=== PATIENT | male | born 1995 | race Asian ===

== ENCOUNTER 2017-02-14 20:30 | Emergency (ER) | payer OTHER ==
[2017-02-14 20:40] VITALS: BP 116/60; PULSE 96; TEMP 98.3; BMI 26.6
[2017-02-14] MEDS ORDERED: NAPROXEN 500 MG TABLET (FP) PO ONE (22:20)
[2017-02-14] MEDS ORDERED: NAPROXEN 500 MG TABLET (FP) ONE (22:24)
[2017-02-14] MEDS ORDERED: CYCLOBENZAPRINE HCL 10 MG TABLET (FP) PO ONE (22:25)
--- NOTE | 2017-02-14 22:25 | PDOC ---
History of Present Illness - General Chief Complaint: Pain Stated Complaint: NECK PAIN Time Seen by Provider: 02/14/17 22:15 History Source: Patient Exam Limitations: No Limitations - History of Present Illness Initial Comments: 02/14/17 22:29 My Chief complaint:: Left lateral neck discomfort History of present illness: He is a 21-year-old male with no significant medical history here today with intermittent left lateral neck pain 5 days agoes one week and today bilateral upper back muscular pain. Patient reports that he woke up with left lateral neck pain. She denies any radiation of pain down arms or legs or any saddle anesthesia or any incontinency. Patient reports she took Advil yesterday. Patient reports the pain is keeping him up at night. 02/14/17 22:31 Timing/Duration: intermittent (getting worse today ) Severity: moderate Modifying Factors: improves with: immobilization Associated Symptoms: reports: denies symptoms Past History - Past Medical History Allergies/Adverse Reactions: Allergies Allergy/AdvReac Type Severity Reaction Status Date / Time No Known Allergies Allergy Verified 02/14/17 20:37 Home Medications: Ambulatory Orders Cyclobenzaprine HCl [Flexeril 10 mg] 10 mg PO BID PRN #14 tablet 02/14/17 Naproxen [Naprosyn -] 500 mg PO BID PRN #14 tablet 02/14/17 Other medical history: Pt denies - Psycho/Social/Smoking Cessation Hx Anxiety: No Suicidal Ideation: No Smoking History: Former smoker Have you smoked in the past 12 months: Yes Number of Cigarettes Smoked Daily: 0 If you are a former smoker, when did you quit?: 1 month ago Information on smoking cessation initiated: No Hx Alcohol Use: No Drug/Substance Use Hx: No Substance Use Type: None Review of Systems - Review of Systems Able to Perform ROS?: Yes Constitutional: No: Symptoms Reported HEENTM: No: Symptoms Reported Respiratory: No: Symptoms reported Cardiac (ROS): No: Symptoms Reported ABD/GI: No: Symptoms Reported : No: Symptoms Reported Musculoskeletal: Yes: Muscle Pain (upper back b/l ), Neck Pain (left lateral neck, upper back ) Integumentary: No: Symptoms Reported Neurological: No: Symptoms reported *Physical Exam - Vital Signs Last Vital Signs Temp Pulse Resp BP Pulse Ox 98.3 F 96 H 20 116/60 100 02/14/17 20:38 02/14/17 20:38 02/14/17 20:38 02/14/17 20:38 02/14/17 20:38 - Physical Exam General Appearance: Yes: Appropriately Dressed Neck: positive: Tender lateral (left lateral ). negative: Decreased range of motion, Lymphadenopathy (R), Lymphadenopathy (L), Tender midline Respiratory/Chest: positive: Lungs Clear, Normal Breath Sounds. negative: Chest Tender, Respiratory Distress Cardiovascular: positive: Regular Rhythm, Regular Rate, S1, S2 Musculoskeletal: positive: Normal Inspection, Muscle Spasm (left lateral neck ) , Other (muscular pain b/l upper back, left lateral neck ). negative: CVA Tenderness, CVA Tenderness (R), CVA Tenderness (L), Vertebral Tenderness Integumentary: positive: Normal Color Neurologic: positive: Alert, Normal Response, Motor Strength 5/5, Responsive. negative: Respond to painful stimul, Numbness, Sensory Deficit Deep Tendon Reflexes: Knee (L): 4+, Knee (R): 4+ Medical Decision Making - Medical Decision Making 02/14/17 22:28 02/14/17 22:31 He is a 21-year-old male with no significant medical history here today with intermittent left lateral neck pain 5 days agoes one week and today bilateral upper back muscular pain. Patient reports that he woke up with left lateral neck pain. She denies any radiation of pain down arms or legs or any saddle anesthesia or any incontinency. Patient reports she took Advil yesterday. Patient reports the pain is keeping him up at night. left lateral neck pain b/l upper back muscular pain PLAN: naprosyn 500 mg po now than bid prn maryellen n# 14 tabs flexeril 10 mg po now than bid prn muscle spasm # 14 tabs follow up with orthopedist *DC/Admit/Observation/Transfer Diagnosis at time of Disposition: Neck pain on left side, Acute upper back pain - Discharge Dispostion Disposition: HOME Condition at time of disposition: Stable - Referrals Referrals: Haleigh Lora MD [Primary Care Provider] - Sotero Hoff MD [Staff Physician] - - Patient Instructions Additional Instructions: Avoid any strenuous activities or exercise Follow-up with orthopedist within the next few days For further evaluation return to emergency room if symptoms worsen or new symptoms develop Patient voiced understanding of discharge instructions and all questions were answered - Post Discharge Activity
[2017-02-14] MEDS ORDERED: CYCLOBENZAPRINE HCL 10 MG TABLET (FP) ONE (22:32)
== END 2017-02-14 22:40 | disposition home or self-care (01) ==
LOC: JERFT 20:30
DX: M54.2 Cervicalgia (principal); M54.89 Other dorsalgia; M62.830 Muscle spasm of back
CPT/HCPCS: 99281-25

== ENCOUNTER 2017-02-16 21:41 | Emergency (ER) | payer OTHER ==
[2017-02-16 22:01] VITALS: BP 114/64; PULSE 98; TEMP 98.4; BMI 26.6
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
[2017-02-16] MEDS ORDERED: DIPHTH,PERTUSS(ACELL),TET 0.5 ML DISP.SYRIN IM ONE (22:18)
== END 2017-02-16 22:30 | disposition home or self-care (01) ==
LOC: JERFT 21:41
PROC: 3E0234Z Introduction of Serum, Toxoid and Vaccine into Muscle, Percutaneous Approach (ICD-10-PCS; principal; 2017-02-16)
DX: S30.1XXA Contusion of abdominal wall, initial encounter (principal); W22.8XXA Striking against or struck by other objects, initial encounter; Y93.89 Activity, other specified; Y92.9 Unspecified place or not applicable
CPT/HCPCS: 90715; 99281-25

== ENCOUNTER 2017-08-15 20:54 | Emergency (ER) | payer OTHER ==
--- NOTE | 2017-08-15 21:26 | PDOC ---
Rapid Medical Evaluation Time Seen by Provider: 08/15/17 21:20 Medical Evaluation: Allergies Allergy/AdvReac Type Severity Reaction Status Date / Time No Known Allergies Allergy Verified 02/14/17 20:37 08/15/17 21:20 I have performed a brief in-person person evaluation of the patient. The patient presents with a chief complaint of pain to right side that radiates around to right flank area intermittently x months now pain constant x 4 days. States pain intermittently on left side also. States pain preventing him form sleeping for past 4 days. Pertinent physical exam findings: NAD unlabored breathing heart s1s2 abdomen with tenderness to right side next to healed scar, non tender in 4 quadrants no cva tenderness I have ordered the following: urinalysis ordered The patient will proceed to the ED for further evaluation.
[2017-08-15 21:35] VITALS: BP 131/76; PULSE 106; TEMP 98.8; BMI 25.0
[2017-08-15 23:22] LABS: URINE APPEARANCE CLEAR; URINE BILIRUBIN NEGATIVE (NEGATIVE); URINE BLOOD NEGATIVE (NEGATIVE); URINE COLOR YELLOW; URINE GLUCOSE (UA) NEGATIVE (NEGATIVE); URINE KETONE NEGATIVE (NEGATIVE); URINE LEUK ESTERASE NEGATIVE (NEGATIVE); URINE NITRITE NEGATIVE (NEGATIVE); URINE PROTEIN NEGATIVE (NEGATIVE)
[2017-08-15] MEDS ORDERED: IBUPROFEN 600 MG TABLET (FP) PO ONE ×2 (23:44→23:53)
--- NOTE | 2017-08-16 00:16 | PDOC ---
History of Present Illness - General History Source: Patient Exam Limitations: No Limitations - History of Present Illness Initial Comments: 08/16/17 00:16 The patient is a 21 year old male, with no significant past medical history, who presents to the emergency department with worsening right sided abdominal pain for the past 4 days but notes that he has been having discomfort for over a month. He describes his abdominal pain as ranging from mild to moderate, with radiation to his right flank intermittently. He notes that he has been feeling weird when urinating lately. He denies taking any medication for pain. The patient denies chest pain, shortness of breath, headache and dizziness. Denies fever, chills, nausea, vomit, diarrhea and constipation. Denies dysuria, frequency, urgency and hematuria. Allergies: None Past surgical history: None reported Social history: Cigarette use. No alcohol or drug use reported <Mikey Reese - Last Filed: 08/16/17 00:16> <Leigha Hutton - Last Filed: 08/16/17 00:30> - General Chief Complaint: Pain Stated Complaint: PAIN Time Seen by Provider: 08/15/17 21:20 Past History <Mikey Reese - Last Filed: 08/16/17 00:16> - Past Medical History COPD: No Other medical history: Pt denies - Suicide/Smoking/Psychosocial Hx Smoking History: Current every day smoker Have you smoked in the past 12 months: Yes Number of Cigarettes Smoked Daily: 4 If you are a former smoker, when did you quit?: 4 Information on smoking cessation initiated: No Hx Alcohol Use: No Drug/Substance Use Hx: No Substance Use Type: None <Leigha Hutton - Last Filed: 08/16/17 00:30> - Past Medical History Allergies/Adverse Reactions: Allergies Allergy/AdvReac Type Severity Reaction Status Date / Time No Known Allergies Allergy Verified 08/15/17 21:23 Home Medications: Ambulatory Orders Cyclobenzaprine HCl [Flexeril 10 mg] 10 mg PO BID PRN #14 tablet 02/14/17 Naproxen [Naprosyn -] 500 mg PO BID PRN #14 tablet 02/14/17 Review of Systems - Review of Systems Able to Perform ROS?: Yes Comments:: 08/16/17 00:16 GENERAL/CONSTITUTIONAL: No fever or chills. No weakness. HEAD, EYES, EARS, NOSE AND THROAT: No change in vision. No ear pain or discharge. No sore throat. CARDIOVASCULAR: No chest pain or shortness of breath RESPIRATORY: No cough, wheezing, or hemoptysis. GASTROINTESTINAL: (+) Right sided abdominal pain. No nausea, vomiting, diarrhea or constipation. GENITOURINARY: (+) Right sided flank pain. No dysuria, frequency, or change in urination. MUSCULOSKELETAL: No joint or muscle swelling or pain. No neck or back pain. SKIN: No rash NEUROLOGIC: No headache, vertigo, loss of consciousness, or change in strength/ sensation. ENDOCRINE: No increased thirst. No abnormal weight change HEMATOLOGIC/LYMPHATIC: No anemia, easy bleeding, or history of blood clots. ALLERGIC/IMMUNOLOGIC: No hives or skin allergy. <Mikey Reese - Last Filed: 08/16/17 00:16> *Physical Exam - Vital Signs Last Vital Signs Temp Pulse Resp BP Pulse Ox 98.8 F 106 H 18 131/76 99 08/15/17 21:24 08/15/17 21:24 08/15/17 21:24 08/15/17 21:24 08/15/17 21:24 - Physical Exam Comments: 08/16/17 00:16 GENERAL: Awake, alert, and fully oriented, in no acute distress HEAD: No signs of trauma, normocephalic, atraumatic EYES: PERRLA, EOMI, sclera anicteric, conjunctiva clear ENT: Auricles normal inspection, hearing grossly normal, nares patent, oropharynx clear without exudates. Moist mucosa NECK: Normal ROM, supple, no lymphadenopathy, JVD, or masses LUNGS: No distress, speaks full sentences, clear to auscultation bilaterally HEART: Regular rate and rhythm, normal S1 and S2, no murmurs, rubs or gallops, peripheral pulses normal and equal bilaterally. ABDOMEN: Soft, nontender, normoactive bowel sounds. No guarding, no rebound. No masses EXTREMITIES : Normal inspection, Normal range of motion, no edema. No clubbing or cyanosis. NEUROLOGICAL: Cranial nerves II through XII grossly intact. Normal speech, normal gait, no focal sensorimotor deficits SKIN: Warm, Dry, normal turgor, no rashes or lesions noted <Mikey Reese - Last Filed: 08/16/17 00:16> - Vital Signs Last Vital Signs Temp Pulse Resp BP Pulse Ox 98.8 F 106 H 18 131/76 99 08/15/17 21:24 08/15/17 21:24 08/15/17 21:24 08/15/17 21:24 08/15/17 21:24 <Leigha Hutton - Last Filed: 08/16/17 00:30> ED Treatment Course - ADDITIONAL ORDERS Additional order review: Laboratory Results 08/15/17 23:13 Urine Color Yellow Urine Appearance Clear Urine pH 5.0 Ur Specific [place] 1.029 Urine Protein Negative Urine Glucose (UA) Negative Urine Ketones Negative Urine Blood Negative Urine Nitrite Negative Urine Bilirubin Negative Urine Urobilinogen 2.0 Ur Leukocyte Esterase Negative - Medications Given in the ED: ED Medications Discontinued Medications Generic Name Dose Route Start Last Admin Trade Name Freq PRN Reason Stop Dose Admin Ibuprofen 600 mg 08/15/17 23:44 08/15/17 23:59 Motrin - PO 08/15/17 23:45 600 mg ONCE ONE Administration <Mikey Reese - Last Filed: 08/16/17 00:16> - ADDITIONAL ORDERS Additional order review: Laboratory Results 08/15/17 23:13 Urine Color Yellow Urine Appearance Clear Urine pH 5.0 Ur Specific [place] 1.029 Urine Protein Negative Urine Glucose (UA) Negative Urine Ketones Negative Urine Blood Negative Urine Nitrite Negative Urine Bilirubin Negative Urine Urobilinogen 2.0 Ur Leukocyte Esterase Negative - RADIOLOGY Radiology Studies Ordered: Category Date Time Status CHEST PA & LAT [RAD] Stat Radiology 08/15/17 23:44 Completed - Medications Given in the ED: ED Medications Discontinued Medications Generic Name Dose Route Start Last Admin Trade Name Freq PRN Reason Stop Dose Admin Ibuprofen 600 mg 08/15/17 23:44 08/15/17 23:59 Motrin - PO 08/15/17 23:45 600 mg ONCE ONE Administration <Leigha Hutton - Last Filed: 08/16/17 00:30> Medical Decision Making - Medical Decision Making 08/16/17 00:29 21-year-old male with no past significant medical history the exception of tobacco use one pack per day. Presents with 5 days of intermittent cough and some right sided musculoskeletal pain. He denies fever, chills, nausea, vomiting, dysuria or hematuria. He is not short of breath. He has no anterior chest pain. Chest x-ray is clear. If any infiltrates, no pleural effusions, no pneumothorax , normal cardiac silhouette. Patient has not taken any [id number] medications for his pleuritic pain and was given Motrin <Leigha Htuton - Last Filed: 08/16/17 00:30> *DC/Admit/Observation/Transfer - Attestations Scribe Attestion: 08/16/17 00:17 Documentation prepared by Mikey Reese, acting as medical biller for Leigha Hutton MD <Mikey Reese - Last Filed: 08/16/17 00:16> <Leigha Hutton - Last Filed: 08/16/17 00:30> Diagnosis at time of Disposition: Cough, Musculoskeletal chest pain - Discharge Dispostion Disposition: HOME Condition at time of disposition: Stable - Patient Instructions Printed Discharge Instructions: DI for Cough -- Adult, DI for Atypical Chest Pain Additional Instructions: 1. please stop smoking 2.you may take tylenol or motrin or aleve for pain 3. return for worsening symptoms
[2017-08-16] MEDS ORDERED: guaiFENesin 200 MG/10 ML 10 ML UNIT-DOSE CUPS PO ONE (00:21)
[2017-08-16] MEDS ORDERED: IBUPROFEN 600 MG TABLET (FP) PO ONE (00:23)
[2017-08-16] MEDS ORDERED: guaiFENesin 200 MG/10 ML 10 ML UNIT-DOSE CUPS ONE (00:25)
== END 2017-08-16 00:32 | disposition home or self-care (01) ==
LOC: JER 20:54
DX: R07.89 Other chest pain (principal); R05 Cough; F17.210 Nicotine dependence, cigarettes, uncomplicated
CPT/HCPCS: 71046-TC-FY; 81003; 99281-25

== ENCOUNTER 2017-08-20 23:33 | Emergency (ER) | payer OTHER ==
[2017-08-20 23:41] VITALS: BP 115/78; PULSE 104; TEMP 98.5; BMI 25.0
[2017-08-21] MEDS ORDERED: KETOROLAC TROMETHAMINE 60 MG/2 ML VIAL IM ONE (00:03)
--- NOTE | 2017-08-21 00:03 | PDOC ---
History of Present Illness - General Chief Complaint: Pain Stated Complaint: RT FLANK PAIN Time Seen by Provider: 08/20/17 23:39 History Source: Patient Exam Limitations: No Limitations - History of Present Illness Initial Comments: 08/21/17 06:50 intermittent back pain x months Timing/Duration: intermittent Severity: moderate Modifying Factors: worse with: medication Associated Symptoms: denies: fever/chills, nausea/vomiting Past History - Past Medical History Allergies/Adverse Reactions: Allergies Allergy/AdvReac Type Severity Reaction Status Date / Time No Known Allergies Allergy Verified 08/15/17 21:23 Home Medications: Ambulatory Orders Naproxen 500 mg PO BID PRN #20 tablet 08/21/17 COPD: No Other medical history: none known - Suicide/Smoking/Psychosocial Hx Smoking History: Former smoker Have you smoked in the past 12 months: No Number of Cigarettes Smoked Daily: 0 If you are a former smoker, when did you quit?: 4 Information on smoking cessation initiated: No Hx Alcohol Use: No Drug/Substance Use Hx: No Substance Use Type: None Review of Systems - Review of Systems All Other Systems: Reviewed and Negative *Physical Exam - Vital Signs Last Vital Signs Temp Pulse Resp BP Pulse Ox 98.5 F 104 H 16 115/78 98 08/20/17 23:37 08/20/17 23:37 08/20/17 23:37 08/20/17 23:37 08/20/17 23:37 - Physical Exam General Appearance: Yes: Nourished, Appropriately Dressed HEENT: positive: Normal Voice Neck: negative: Tender Respiratory/Chest: positive: Lungs Clear Cardiovascular: positive: Regular Rhythm Gastrointestinal/Abdominal: negative: Tender Lymphatic: negative: Adenopathy Musculoskeletal: positive: Other (+ localized muscular tenderness b/l lower back , paraspinal). negative: CVA Tenderness Integumentary: positive: Normal Color. negative: Pale, Rash Neurologic: positive: Alert, Normal Response, Motor Strength 5/5. negative: Sensory Deficit Medical Decision Making - Medical Decision Making 08/21/17 06:52 msk back pain nsaids *DC/Admit/Observation/Transfer Diagnosis at time of Disposition: Muscle spasm - Discharge Dispostion Disposition: HOME Condition at time of disposition: Stable - Prescriptions Prescriptions: Naproxen 500 mg PO BID PRN #20 tablet PRN Reason: back spasm - Referrals - Patient Instructions Printed Discharge Instructions: DI for Back Spasm - Post Discharge Activity
[2017-08-21] MEDS ORDERED: KETOROLAC TROMETHAMINE 60 MG/2 ML VIAL ONE (00:04)
== END 2017-08-21 00:15 | disposition home or self-care (01) ==
LOC: FER 23:33
PROC: 3E0233Z Introduction of Anti-inflammatory into Muscle, Percutaneous Approach (ICD-10-PCS; principal; 2017-08-20)
DX: M62.838 Other muscle spasm (principal)
CPT/HCPCS: 99282-25

== ENCOUNTER 2018-06-23 19:26 | Emergency (ER) | payer OTHER ==
[2018-06-23 19:40] VITALS: BP 125/83; PULSE 108; TEMP 99.2; BMI 26.6
--- NOTE | 2018-06-23 19:56 | PDOC ---
History of Present Illness - General History Source: Patient Exam Limitations: No Limitations - History of Present Illness Initial Comments: 06/23/18 20:15 A portion of this note was documented by scribe services under my direction. I have reviewed the details of the note, within reason, and agree with the documentation with the following case summary and management plan written by me. Patient treated in the ED. Nursing notes are reviewed and incorporated into the medical decision-making. Vital signs reviewed. Assessment and plan: This is a 22-year-old male who comes in complaining of cough and congestion 1 week. Patient said he has a productive cough with brownish sputum. Patient denies any fevers. Patient is complaining of some pleuritic pain associated with the cough. In addition to that upon further questioning patient does complain of some dysuria and is sexually active with multiple partners and no protection. Patient did deny any penile discharge lesions or history of STDs in the past. Patient however since he has been treated for STDs in the past prophylactically based on his sexual history. Patient is requesting HIV testing in addition to STD testing. Workup initiated including chest x-ray testing for STDs including chlamydia or gonorrhea syphilis and HIV Treatment initiated for STDs based on patient's sexual history. 06/23/18 20:44 <Marva Duvall I - Last Filed: 06/23/18 20:44> - General History Source: Patient Exam Limitations: No Limitations - History of Present Illness Initial Comments: 06/23/18 20:58 The patient is a 22 year old man, with a past medical history of STD, who presents today complaining of intermittent productive cough for one week. The cough is productive of greenish/brownish sputum. The patient reports shortness of breath during his fits of cough. The patient reports taking dayquil and nyquil with no relief. The patient notes halls cough drops alleviated present symptoms. Patient reports multiple sexual partners in the past few weeks and denies the use of protection. The patient comes into the ED complaining burning on urination for several days. Patient denies fevers and chills. Patient denies body aches. Denies headaches. PAST MEDICAL HISTORY: STD (Chlamydia and Gonorrhea) PAST SURGICAL HISTORY: no significant history FAMILY HISTORY: no pertinent history SOCIAL HISTORY: Pt reports the use of e-cigarettes and regular cigarettes. MEDICATIONS: reviewed ALLERGIES: As per nursing notes General: + fevers. No chills, no weakness, no weight loss HEENT: No change in vision. No sore throat,. No ear pain CardioVascular: No chest pain or shortness of breath Respiratory:+ productive cough. No wheezing. Gastrointestinal: no nausea, vomiting, diarrhea or constipation, No rectal bleeding Genitourinary: +dysuria. No hematuria or frequency. Musculoskeletal: No joint or muscle pain or swelling Neurologic: + headache. No vertigo, dizziness or loss of consciousness Psychiatric: nor depression Skin: No rashes or easy bruising Endocrine: no increased thirst or abnormal weight change Allergic: no skin or latex allergy All other systems reviewed and normal GENERAL: The patient is awake, alert, and fully oriented, in no acute distress. HEAD: Normal with no signs of trauma. EYES: Pupils equal, round and reactive to light, extraocular movements intact, sclera anicteric, conjunctiva clear. Respiratory: Lungs clear to auscultation bilateral Genitourinary: No penile lesions, circumsized penis, no lymphadenopathy, no penile discharge. Testicles are nontender, no masses on palpation. EXTREMITIES: Normal range of motion, no edema. NEUROLOGICAL: Normal speech, normal gait. PSYCH: Normal mood, normal affect. SKIN: Warm, Dry, normal turgor, no rashes or lesions noted. <Mckenna Dahl - Last Filed: 06/23/18 21:24> - General Chief Complaint: Cold Symptoms Stated Complaint: COUGH Time Seen by Provider: 06/23/18 19:30 Past History - Past Medical History COPD: No - Suicide/Smoking/Psychosocial Hx Smoking History: Current some day smoker Have you smoked in the past 12 months: No Number of Cigarettes Smoked Daily: 1 If you are a former smoker, when did you quit?: 4 Information on smoking cessation initiated: Yes Hx Alcohol Use: No Drug/Substance Use Hx: No Substance Use Type: None <Marva Duvall I - Last Filed: 06/23/18 20:44> <Mckenna Dahl - Last Filed: 06/23/18 21:24> - Past Medical History Allergies/Adverse Reactions: Allergies Allergy/AdvReac Type Severity Reaction Status Date / Time No Known Allergies Allergy Verified 08/15/17 21:23 Home Medications: Ambulatory Orders Benzonatate [Tessalon Pearls -] 200 mg PO TID #21 cap 06/23/18 *Physical Exam - Vital Signs Last Vital Signs Temp Pulse Resp BP Pulse Ox 99.2 F 108 H 16 125/83 100 06/23/18 19:30 06/23/18 19:30 06/23/18 19:30 06/23/18 19:30 06/23/18 19:30 <Marva Duvall I - Last Filed: 06/23/18 20:44> - Vital Signs Last Vital Signs Temp Pulse Resp BP Pulse Ox 99.2 F 108 H 16 125/83 100 06/23/18 19:30 06/23/18 19:30 06/23/18 19:30 06/23/18 19:30 06/23/18 19:30 <Mckenna Dahl - Last Filed: 06/23/18 21:24> Moderate Sedation - Procedure Monitoring Vital Signs: Procedure Monitoring Vital Signs Temperature 99.2 F 06/23/18 19:30 Pulse Rate 108 H 06/23/18 19:30 Respiratory Rate 16 06/23/18 19:30 Blood Pressure 125/83 06/23/18 19:30 O2 Sat by Pulse Oximetry (%) 100 06/23/18 19:30 <Marva Duvall I - Last Filed: 06/23/18 20:44> - Procedure Monitoring Vital Signs: Procedure Monitoring Vital Signs Temperature 99.2 F 06/23/18 19:30 Pulse Rate 108 H 06/23/18 19:30 Respiratory Rate 16 06/23/18 19:30 Blood Pressure 125/83 06/23/18 19:30 O2 Sat by Pulse Oximetry (%) 100 06/23/18 19:30 <Mckenna Dahl - Last Filed: 06/23/18 21:24> ED Treatment Course - ADDITIONAL ORDERS Additional order review: Laboratory Results 06/23/18 20:05 Urine Color Yellow Urine Appearance Clear Urine pH 5.5 Ur Specific [place] 1.015 Urine Protein Negative Urine Glucose (UA) Negative Urine Ketones Negative Urine Blood Trace-intact H Urine Nitrite Negative Urine Bilirubin Negative Urine Urobilinogen 0.2 Ur Leukocyte Esterase Negative Urine RBC 2-5 Urine WBC 0-2 Urine Bacteria 1+ - Medications Given in the ED: ED Medications Discontinued Medications Generic Name Dose Route Start Last Admin Trade Name Familia PRN Reason Stop Dose Admin Azithromycin 1,000 mg 06/23/18 20:11 06/23/18 20:30 Azithromycin PO 06/23/18 20:12 1,000 mg ONCE ONE Administration Ceftriaxone Sodium 500 mg 06/23/18 20:12 06/23/18 20:30 Rocephin - IM 06/23/18 20:13 500 mg ONCE ONE Administration <Mckenna Dahl - Last Filed: 06/23/18 21:24> *DC/Admit/Observation/Transfer <Marva Duvall I - Last Filed: 06/23/18 20:44> - Attestations Scribe Attestion: 06/23/18 20:59 Documentation prepared by Mckenna Dahl, acting as medical screener for Marva Duvall MD <Mckenna Dahl - Last Filed: 06/23/18 21:24> Diagnosis at time of Disposition: Dysuria, Viral upper respiratory infection - Discharge Dispostion Disposition: HOME Condition at time of disposition: Stable - Prescriptions Prescriptions: Benzonatate [Tessalon Pearls -] 200 mg PO TID #21 cap - Referrals Schedule a call back: STD test results GC, chlamydia, Syphyllis, HIV Referrals: Alessandra Lama MD [Primary Care Provider] - - Patient Instructions Printed Discharge Instructions: DI for Viral Upper Respiratory Infection -- Adult Additional Instructions: Your chest x-ray was normal. You have been treated for chlamydia and gonorrhea you were not treated but tested for syphilis and HIV. If any of them are positive we will call you and give you the results. It is important that you use protection in the future. No sexual intercourse until you know the results of your tests if any of them are positive your partner will need to be notified and treated. For the cough I am sending a prescription to your pharmacy for Tessalon Perles he will take one twice a day. 4 fevers or sore muscles from coughing take Motrin 2 tablets 3 times a day Return to the emergency department immediately with ANY new, persistent or worsening symptoms. Continue any medications as previously prescribed by your physician. You should follow up with your primary doctor as soon as possible regarding today's emergency department visit. . Please make sure your doctor reviews the results of your emergency evaluation. Thank you for coming to the Emergency Department today for your care. It was a pleasure to see you today. Please note that your evaluation is INCOMPLETE until you follow-up with your doctor. - Post Discharge Activity
[2018-06-23] MEDS ORDERED: AZITHROMYCIN 500 MG TABLET PO ONE (20:11)
[2018-06-23 20:16] LABS: PH,URINE 5.5 (4.5-8); URINE APPEARANCE Clear; URINE BILIRUBIN Negative (NEGATIVE); URINE COLOR Yellow; URINE GLUCOSE (UA) Negative (NEGATIVE); URINE KETONE Negative (NEGATIVE); URINE LEUK ESTERASE Negative (NEGATIVE); URINE NITRITE Negative (NEGATIVE); URINE PROTEIN Negative (NEGATIVE); URINE UROBILINOGEN 0.2 (0.2-1.0)
[2018-06-23] MEDS ORDERED: AZITHROMYCIN 500 MG TABLET ONE (20:18)
[2018-06-23 20:47] LABS: URINE BACTERIA 1+ /hpf (NEGATIVE); URINE WBC 0-2 (0-2)
== END 2018-06-23 20:59 | disposition home or self-care (01) ==
LOC: FER 19:26
DX: J06.9 Acute upper respiratory infection, unspecified (principal); B97.89 Other viral agents as the cause of diseases classified elsewhere; R30.0 Dysuria; F17.210 Nicotine dependence, cigarettes, uncomplicated; Z87.438 Personal history of other diseases of male genital organs
CPT/HCPCS: 36415; 71046-TC-FY; 81003; 81015; 86593; 87086; 87389; 87491; 87591; 96372; 99282-25

== ENCOUNTER 2023-05-11 12:31 | Emergency (ER) | payer OTHER ==
[2023-05-11 13:06] VITALS: BP 113/74; PULSE 80; RESP 18; TEMP 97.8; BMI 26.4
[2023-05-11] MEDS ORDERED: AMOX TR/POT CLAV 875MG/125MG TABLETS (FP) PO ONE (13:56)
[2023-05-11] MEDS ORDERED: IBUPROFEN 600 MG TABLET (FP) PO ONE ×2 (13:56→14:00)
[2023-05-11] MEDS ORDERED: AMOX TR/POT CLAV 875MG/125MG TABLETS (FP) ONE (14:00)
== END 2023-05-11 14:05 | disposition home or self-care (01) ==
LOC: FER 12:31
DX: M79.675 Pain in left toe(s) (principal); R22.42 Localized swelling, mass and lump, left lower limb
CPT/HCPCS: 99283-25

== ENCOUNTER 2023-05-30 20:53 | Emergency (ER) | payer OTHER ==
[2023-05-30 21:02] VITALS: BP 137/82; PULSE 75; RESP 16; TEMP 99; BMI 26.6
[2023-05-30] MEDS ORDERED: AZITHROMYCIN 500 MG TABLET PO ONE (22:15)
[2023-05-30] MEDS ORDERED: AZITHROMYCIN 500 MG TABLET ONE (22:17)
== END 2023-05-30 22:24 | disposition home or self-care (01) ==
LOC: FER 20:53
DX: R05.9 Cough, unspecified (principal); R09.89 Other specified symptoms and signs involving the circulatory and respiratory systems; J40 Bronchitis, not specified as acute or chronic; Z20.822 Contact with and (suspected) exposure to COVID-19
CPT/HCPCS: 0241U-QW; 71046-TC-FY; 99284-25